=== PATIENT | female | born 1995 | race Caucasian/White ===

== ENCOUNTER 2022-11-08 15:37 | Emergency (ER) | payer MEDICAID ==
[~2022-11-08] VITALS: Ht 165.1 cm; Wt 51.7 kg
--- NOTE | 2022-11-08 16:22 | NUR ---
C/O PELVIC PAIN AND VAGINAL BLEED THIS MORNING. "I AM 6 WEEKS " FIRST .
--- NOTE | 2022-11-08 16:33 | NUR ---
URINE SAMPLE OBTAINED
[2022-11-08 17:27] LABS: BILIRUBIN,URINE NEGATIVE (NEGATIVE); COLOR,URINE YELLOW (YELLOW); LEUKOCYTE ESTERASE ,URINE NEGATIVE (NEGATIVE); NITRITE, URINE NEGATIVE (NEGATIVE); PH,URINE 7.5 (5.0-8.0); PROTEIN,URINE NEGATIVE (NEGATIVE); UGLUCOSE NEGATIVE (NEGATIVE); UROBILINOGEN,URINE 0.2 EU/dL (0.2)
[2022-11-08] MEDS ORDERED: IV NS 0.9% 1,000 ML IV ONE (17:30)
[2022-11-08 17:41] LABS: BACTERIA,URINE None seen /HPF (None Seen); RBC,URINE 51-80 /HPF (0-2); SQUAMOUS EPITHELIAL CELL,UR 0-2 /HPF (None Seen); WBC,URINE 0-2 /HPF (0-3)
[2022-11-08] MEDS ORDERED: MORPHINE SULFATE INJ 4 MG/ML DISP.SYRIN ONE (17:42)
[2022-11-08] MEDS ORDERED: MORPHINE SULFATE INJ 2 MG/ML DISP.SYRIN IV ONE (18:00)
[2022-11-08 18:25] LABS: BASOPHILS % (AUTO) 0.3 % (0.0-2.0); EOSINOPHILS % (AUTO) 0.8 % (0.0-6.0); HEMATOCRIT 41 % (33-45); HEMOGLOBIN 13.4 g/dL (11.5-14.8); LYMPHOCYTES # (AUTO) 1.2 K/uL (0.8-4.8); LYMPHOCYTES % (AUTO) 11.4 % (20.0-44.0); MEAN CORPUSCULAR HGB CONC 33 g/dl (31.0-36.0); MEAN CORPUSCULAR VOLUME 92 fL (82-100); MONOCYTES # (AUTO) 0.5 K/uL (0.1-1.30); MONOCYTES % (AUTO) 4.3 % (2.0-12.0); NEUTROPHILS % (AUTO) 83.2 % (43.0-81.0); PLATELET COUNT (AUTO) 255 K/uL (150-450); RED BLOOD CELL COUNT(AUTO) 4.46 MIL/uL (4.0-5.2); WHITE BLOOD COUNT (AUTO) 10.8 K/uL (4.3-11.0)
--- NOTE | 2022-11-08 19:49 | NUR ---
Patient discharged to home in stable condition. Written and verbal after care instructions given. Patient verbalizes understanding of instruction.IV removed. Catheter intact and site benign. Pressure and 4x4 applied to site. No bleeding noted.
[2022-11-08 19:50] VITALS: BP 122/67
== END 2022-11-08 19:51 | disposition home or self-care (01) ==
LOC: ER 15:42
DX: O03.9 Complete or unspecified spontaneous abortion without complication (principal); Z98.890 Other specified postprocedural states
CPT/HCPCS: 99285; 96374; 76856; 96361; 85025; 84703; 81001; 36415; 84702; J2270; J7030

== ENCOUNTER 2024-03-09 22:05 | Emergency (ER) | payer MEDICAID ==
[~2024-03-09] VITALS: Ht 167.6 cm; Wt 51.7 kg
[2024-03-09] MEDS ORDERED: PANT40TA2 PO (23:32)
[2024-03-09] MEDS ORDERED: LIDOCAINE VISCOUS 2% UD 15 ML UDC ONE (23:36)
[2024-03-09] MEDS ORDERED: MAG HYDROX/AL HYDROX/SIMETH 30 ML UDC ONE (23:36)
[2024-03-09] MEDS: LIDOCAINE VISCOUS 2% UD 15 ML UDC MM ONE (23:41)
[2024-03-09] MEDS: MAG HYDROX/AL HYDROX/SIMETH 30 ML UDC PO ONE (23:41)
[2024-03-09 23:43] VITALS: BP 118/67; TEMP 98.6; O2SAT 100
== END 2024-03-09 23:54 | disposition home or self-care (01) ==
LOC: ER 22:11
DX: K21.9 Gastro-esophageal reflux disease without esophagitis (principal); Z79.899 Other long term (current) drug therapy